=== PATIENT | female | born 1965 | race Caucasian/White ===

== ENCOUNTER 2021-08-08 09:50 | Observation (INO) ==
[2021-08-08] MEDS ORDERED: MORPHINE SULFATE INJ 4 MG IVP ONE (10:29)
[2021-08-08] MEDS ORDERED: NS 1000 ML 1,000 ML IV ONE (10:29)
[2021-08-08] MEDS ORDERED: ZOFRAN INJ 4 MG VIAL IVP ONE (10:29)
--- NOTE | 2021-08-08 10:34 | ED.ABDFE ---
HPI Time Seen Time Seen by Provider: 08/08/21 10:29 PCP Primary Care Physician: HPI Comment HPI Comment: abd pain w diarrhea x 3 days. lower and left > right. hx of diverticulitis and c diff. sent over from local clinic. Complaint Chief Complaint:: PT C/O ABDOMINAL PAIN & DIARRHEA ONSET X3 DAYS AGO. PT DENIES JESSICA N/V @ THIS TIME. COVID-19 Coronavirus risk:travel/contact w/high risk person: No Has patient experienced Coronavirus symptoms: No Source History Provided: Patient Mode of arrival Mode of Arrival: Ambulatory Timing Onset of Chief Complaint: 08/05/21 PMH PMH Past Medical History: Yes Past Medical History: Asthma and Hypertension Past Surgical History: Yes Surgical History: Cholecystectomy, Hysterectomy, Ortho Surgery, Tonsillectomy and Weight Loss Surgery Family History History of Family Medical Conditions: Yes Family Medical History: Coronary Artery Disease, Heart Failure and Hypertension Social History Do you use any recreational Drugs:: No Travel Risk Coronavirus risk:travel/contact w/high risk person: No Has patient experienced Coronavirus symptoms: No Infectious screening Have you traveled outside the country in the last 6 months?: No Isolation: Standard ROS Review of Systems Constitutional: See HPI Eyes: No Symptoms Reported ENTM: No Symptoms Reported Respiratoy: No Symptoms Reported Cardiovascular: No Symptoms Reported Gastrointestinal/Abdominal: No Symptoms Reported Genitourinary: No Symptoms Reported Neurological: No Symptoms Reported Musculoskeletal: No Symptoms Reported All Other Systems: Reviewed and Negative PE Vital Signs Vitals: Temperature 98.3 F Pulse Rate 71 Respiratory Rate 20 Blood Pressure [Right Arm] 121/73 Blood Pressure 124/66 O2 Sat by Pulse Oximetry 99 General General Appearance: Alert and In Distress Neck Neck Exam: Normal Inspection Respiratory Respiratory Exam: Normal Lung Sounds Bilat; negative Accessory Muscle Use Cardiovascular Cardiovascular Exam: Regular Rate and Normal Heart Sounds Abdominal Exam Abdominal Exam: Normal Inspection, Normal Bowel Sounds and Tenderness; negative Guarding and Rebound Back Back Exam: Normal Inspection and Full ROM Extremeties Extremities Exam: Normal Inspection and Full ROM Neurologic Neurological Exam: Alert and Oriented X3 Skin Skin Exam: Warm, Dry and Intact COURSE Treatment Treatment: improved w IVF and pain meds. ROR Labs Reviewed Laboratory Results Reviewed?: Yes Result Diagrams: 08/08/21 10:40 08/08/21 10:40 Laboratory: WBC 11.0 X10^3/uL (3.6-10.0) H 08/08/21 10:40 RBC 4.41 X10^6/uL (3.5-5.4) 08/08/21 10:40 Hgb 13.2 g/dL (12.0-16.0) 08/08/21 10:40 Hct 39.2 % (36.0-47.0) 08/08/21 10:40 MCV 88.9 fL (80.0-100.0) 08/08/21 10:40 MCH 29.9 pg (27.0-34.0) 08/08/21 10:40 MCHC 33.7 g/dL (33.0-35.0) 08/08/21 10:40 RDW 13.9 % (11.6-16.5) 08/08/21 10:40 Plt Count 300 X10^3/uL (150.0-450.0) 08/08/21 10:40 MPV 8.7 fL (7.4-11.0) 08/08/21 10:40 Neut % (Auto) 68.8 % (42.0-75.0) 08/08/21 10:40 Lymph % (Auto) 22.6 % (21.0-51.0) 08/08/21 10:40 [place] % (Auto) 4.9 % (0.0-13.0) 08/08/21 10:40 Eos % (Auto) 1.1 % (0.9-2.9) 08/08/21 10:40 Baso % (Auto) 2.6 % (0.2-1.0) H 08/08/21 10:40 Neut # (Auto) 7.6 x10^3/uL (2.2-4.8) H 08/08/21 10:40 Lymph # (Auto) 2.5 X10^3/uL (1.3-2.9) 08/08/21 10:40 [place] # (Auto) 0.5 x10^3/uL (0.3-0.8) 08/08/21 10:40 Eos # (Auto) 0.1 x10^3/uL (0.0-0.2) 08/08/21 10:40 Baso # (Auto) 0.3 X10^3/uL (0.0-0.1) H 08/08/21 10:40 Absolute Nucleated RBC 0.0 /100WBC 08/08/21 10:40 Sodium 140 mmol/L (136-145) 08/08/21 10:40 Corrected Sodium TNP 08/08/21 10:40 Potassium 4.3 mmol/L (3.5-5.1) 08/08/21 10:40 Chloride 104 mmol/L (98-107) 08/08/21 10:40 Carbon Dioxide 28.8 mmol/L (21-32) 08/08/21 10:40 BUN 11 mg/dL (7-18) 08/08/21 10:40 Creatinine 0.60 mg/dL (0.55-1.02) 08/08/21 10:40 Est GFR (MDRD) Af Amer > 60 (>60) 08/08/21 10:40 Est GFR (MDRD) Non-Af > 60 (>60) 08/08/21 10:40 Glucose 95 mg/dL (65-99) 08/08/21 10:40 Calcium 9.1 mg/dL (8.5-10.1) 08/08/21 10:40 Corrected Calcium TNP 08/08/21 10:40 Total Bilirubin 0.40 mg/dL (0.2-1.0) 08/08/21 10:40 AST 12 Units/L (15-37) L 08/08/21 10:40 ALT 18 Units/L (12-78) 08/08/21 10:40 Alkaline Phosphatase 103 Units/L (46-116) 08/08/21 10:40 Total Protein 7.1 g/dL (6.4-8.2) 08/08/21 10:40 Albumin 3.4 g/dL (3.4-5.0) 08/08/21 10:40 Globulin 3.7 g/dL (2.5-4.5) 08/08/21 10:40 Albumin/Globulin Ratio 0.9 Ratio (1.1-2.1) L 08/08/21 10:40 Amylase 51 Units/L (25-115) 08/08/21 10:40 Lipase 69 Units/L (73-393) L 08/08/21 10:40 Specimen Type Clean catch urine 08/08/21 11:45 Urine Color Yellow (YELLOW) 08/08/21 11:45 Urine Appearance Clear (CLEAR) 08/08/21 11:45 Urine pH 6.0 (5.0 - 8.0) 08/08/21 11:45 Ur Specific [place] 1.010 (1.000-1.030) 08/08/21 11:45 Urine Protein Negative (NEGATIVE) 08/08/21 11:45 Urine Glucose (UA) Negative (NEGATIVE) 08/08/21 11:45 Urine Ketones Negative (NEGATIVE) 08/08/21 11:45 Urine Occult Blood 2+ (NEGATIVE) 08/08/21 11:45 Urine Nitrite Negative (NEGATIVE) 08/08/21 11:45 Urine Bilirubin Negative (NEGATIVE) 08/08/21 11:45 Urine Urobilinogen Normal (NORMAL) 08/08/21 11:45 Ur Leukocyte Esterase Negative (NEGATIVE) 08/08/21 11:45 Urine RBC 3-5 /HPF (0-3) A 08/08/21 11:45 Urine WBC 0-2 /HPF (0-5) 08/08/21 11:45 Ur Squamous Epith Cells Rare /HPF (NEGATIVE) 08/08/21 11:45 Amorphous Sediment Trace /HPF (NEGATIVE) 08/08/21 11:45 Urine Bacteria Trace /HPF (NEGATIVE) 08/08/21 11:45 Ur Culture Indicated? No/not indicated 08/08/21 11:45 XRAY X-ray Results: CT shows sigmoid diverticulitis Opioid Opioid Risk Tool Age (Jay box if 16-45): No History of Preadolescent Sexual Abuse: No Total: 0 Total Score Risk Category: Low Risk Copyright: Abner MODI predicting aberrant behaviors Diagnosis Discharge Problem: Diverticulitis of sigmoid colon ADDITIONAL NOTES Additional Notes Additional Notes: admit to dr wan
[2021-08-08] MEDS ORDERED: NS 1000 ML 1,000 ML ONE (10:35)
[2021-08-08] MEDS ORDERED: ZOFRAN INJ 4 MG VIAL ONE (10:35)
[2021-08-08] MEDS ORDERED: MORPHINE SULFATE INJ 4 MG ONE (10:35)
[2021-08-08 11:15] LABS: BASOPHILS # (AUTO) 0.3 X10^3/uL (0.0-0.1); BASOPHILS % (AUTO) 2.6 % (0.2-1.0); EOSINOPHILS # (AUTO) 0.1 x10^3/uL (0.0-0.2); EOSINOPHILS % (AUTO) 1.1 % (0.9-2.9); HEMATOCRIT 39.2 % (36.0-47.0); HEMOGLOBIN 13.2 g/dL (12.0-16.0); LYMPHOCYTES # (AUTO) 2.5 X10^3/uL (1.3-2.9); LYMPHOCYTES % (AUTO) 22.6 % (21.0-51.0); MEAN CORPUSCULAR HEMOGLOBIN 29.9 pg (27.0-34.0); MEAN CORPUSCULAR HGB CONC 33.7 g/dL (33.0-35.0); MEAN CORPUSCULAR VOLUME 88.9 fL (80.0-100.0); MEAN PLATELET VOLUME 8.7 fL (7.4-11.0); MONOCYTES # (AUTO) 0.5 x10^3/uL (0.3-0.8); MONOCYTES % (AUTO) 4.9 % (0.0-13.0); NEUTROPHILS # (AUTO) 7.6 x10^3/uL (2.2-4.8); NEUTROPHILS % (AUTO) 68.8 % (42.0-75.0); PLATELET COUNT 300 X10^3/uL (150.0-450.0); RED BLOOD COUNT 4.41 X10^6/uL (3.5-5.4); RED CELL DISTRIBUTION WIDTH 13.9 % (11.6-16.5)
[2021-08-08 11:28] LABS: ALANINE AMINOTRANSFERASE 18 Units/L (12-78); ALBUMIN 3.4 g/dL (3.4-5.0); ALKALINE PHOSPHATASE 103 Units/L (46-116); AMYLASE 51 Units/L (25-115); ASPARTATE AMINO TRANSFERASE 12 Units/L (15-37); BLOOD UREA NITROGEN 11 mg/dL (7-18); CALCIUM 9.1 mg/dL (8.5-10.1); CARBON DIOXIDE 28.8 mmol/L (21-32); CHLORIDE 104 mmol/L (98-107); LIPASE 69 Units/L (73-393); SODIUM 140 mmol/L (136-145); TOTAL PROTEIN 7.1 g/dL (6.4-8.2); eGFR NON BLACK RACES > 60 (>60)
[2021-08-08 12:13] LABS: BILIRUBIN,URINE NEGATIVE (NEGATIVE); BLOOD/HEMOGLOBIN,URINE 2+ (NEGATIVE); GLUCOSE, URINE NEGATIVE (NEGATIVE); KETONES,URINE NEGATIVE (NEGATIVE); LEUKOCYTE ESTERASE ,URINE NEGATIVE (NEGATIVE); NITRITES,URINE NEGATIVE (NEGATIVE); PROTEIN,URINE NEGATIVE (NEGATIVE); UROBILINOGEN,URINE NORMAL (NORMAL)
[2021-08-08 12:17] LABS: APPEARANCE,URINE CLEAR (CLEAR); COLOR,URINE YELLOW (YELLOW)
[2021-08-08 12:21] LABS: AMORPHOUS SEDIMENT,UR TRACE /HPF (NEGATIVE); BACTERIA,URINE TRACE /HPF (NEGATIVE); SQUAMOUS EPITHELIAL CELL,UR RARE /HPF (NEGATIVE)
--- NOTE | 2021-08-08 13:52 | CT ---
HISTORYLOWER ABD PAIN ; PT DRANK ORAL CONTRAST, ALLERGY TO IODINESTUDYABDOMEN/PELVIS W/O CONCOMPARISONNone.TECHNIQUEMultiple axial images of the abdomen and pelvis were obtained from the lung bases to the pubic symphysis without the administration of IV contrast. Dose reduction techniques including Automated Exposure Control (AEC) and adjustment of mA and kV were utilized.FINDINGSLack of contrast limits evaluation.Lung bases demonstrate mild scattered subsegmental atelectasis. Partially visualized breast implants. The heart is normal in size. Gastric banding device is present. Status post cholecystectomy. The liver, spleen, pancreas, adrenal glands, and kidneys have a benign noncontrast appearance. 1 cm right lower pole simple appearing renal cyst. Urinary bladder is mostly decompressed. Status post hysterectomy. Sigmoid diverticulosis with wall thickening and pericolic stranding image 75 series 3. No free air or abscess. The appendix appears normal. Negative for bowel obstruction. Mildly atherosclerotic normal caliber abdominal aorta. No pathologic adenopathy. Severe degenerative disc disease at L4-5.IMPRESSIONAcute uncomplicated sigmoid diverticulitis. Recommend colonoscopy after appropriate treatment to exclude underlying lesion.Electronically signed by: Jacinto Foster (Aug 08, 2021 13:50:05)
[2021-08-08] MEDS ORDERED: ZOSYN VIAL 3.375 GRAMS 3.375 G in NS 100 ML IV + SPIKE MINIBAG* 100 ML IV ONE (14:50)
[2021-08-08] MEDS ORDERED: ZOSYN VIAL 3.375 GRAMS IV ONE (15:01)
[2021-08-08] MEDS ORDERED: NS 100 ML IV + SPIKE MINIBAG* 100 ML IV ONE (15:01)
[2021-08-08] MEDS ORDERED: VALIUM PO PRN (15:49)
[2021-08-08] MEDS ORDERED: VALIUM ONE (16:12)
[2021-08-08 17:43] VITALS: BMI 30.7
[2021-08-08] MEDS: ZOSYN VIAL 3.375 GRAMS 3.375 G in NS 100 ML IV + SPIKE MINIBAG* 100 ML IV SCH ×2 (18:15→21:06)
[2021-08-08] MEDS: NS 1000 ML 1,000 ML IV SCH (18:15)
[2021-08-08] MEDS: FLAGYL IV PREMIX 500 MG BAG 500 MG/100 ML BAG IV SCH (20:40)
[2021-08-08] MEDS: VISTARIL PO PRN (20:43)
[2021-08-09] MEDS: FLAGYL IV PREMIX 500 MG BAG 500 MG/100 ML BAG IV SCH ×4 (02:11→20:00)
--- NOTE | 2021-08-09 03:07 | ED.ABDFE ---
HPI Time Seen Time Seen by Provider: 08/08/21 10:29 PCP Primary Care Physician: Rayshawn Complaint Chief Complaint:: PT C/O ABDOMINAL PAIN & DIARRHEA ONSET X3 DAYS AGO. PT DENIES JESSICA N/V @ THIS TIME. COVID-19 Coronavirus risk:travel/contact w/high risk person: No Has patient experienced Coronavirus symptoms: No Source History Provided: Patient Mode of arrival Mode of Arrival: Ambulatory Timing Onset of Chief Complaint: 08/05/21 PMH PMH Past Medical History: Yes Past Medical History: Asthma and Hypertension Past Surgical History: Yes Surgical History: Cholecystectomy and Hysterectomy Family History History of Family Medical Conditions: Yes Family Medical History: Coronary Artery Disease and Hypertension Social History Does patient currently use any type of tobacco product: No Have you used tobacco products in the last 12 months: No Type of Tobacco Use: None Does any household member use tobacco: No Alcohol Use: None Do you use any recreational Drugs:: No Lives With: Spouse Lives Where: Home Travel Risk Coronavirus risk:travel/contact w/high risk person: No Has patient experienced Coronavirus symptoms: No Infectious screening Have you traveled outside the country in the last 6 months?: No Isolation: Standard ROS Review of Systems Constitutional: No Symptoms Reported Eyes: No Symptoms Reported ENTM: No Symptoms Reported Respiratoy: No Symptoms Reported Cardiovascular: No Symptoms Reported Gastrointestinal/Abdominal: See HPI Neurological: No Symptoms Reported Musculoskeletal: No Symptoms Reported PE Vital Signs Vitals: Temperature 98.3 F Pulse Rate [Right Radial] 72 Pulse Rate 71 Respiratory Rate 20 Blood Pressure [Right Arm] 167/73 Blood Pressure 124/66 O2 Sat by Pulse Oximetry 99 General General Appearance: Alert and In No Apparent Distress Head Head Exam: Normal Inspection ENT ENT Exam: Normal Exam Neck Neck Exam: Normal Inspection Respiratory Respiratory Exam: Normal Lung Sounds Bilat; negative Accessory Muscle Use Cardiovascular Cardiovascular Exam: Regular Rate and Normal Heart Sounds Abdominal Exam Abdominal Exam: Normal Inspection, Normal Bowel Sounds and Soft; negative Tenderness Back Back Exam: Normal Inspection and Full ROM ROR Labs Reviewed Laboratory Results Reviewed?: Yes Result Diagrams: 08/08/21 10:40 08/08/21 10:40 Laboratory: WBC 11.0 X10^3/uL (3.6-10.0) H 08/08/21 10:40 RBC 4.41 X10^6/uL (3.5-5.4) 08/08/21 10:40 Hgb 13.2 g/dL (12.0-16.0) 08/08/21 10:40 Hct 39.2 % (36.0-47.0) 08/08/21 10:40 MCV 88.9 fL (80.0-100.0) 08/08/21 10:40 MCH 29.9 pg (27.0-34.0) 08/08/21 10:40 MCHC 33.7 g/dL (33.0-35.0) 08/08/21 10:40 RDW 13.9 % (11.6-16.5) 08/08/21 10:40 Plt Count 300 X10^3/uL (150.0-450.0) 08/08/21 10:40 MPV 8.7 fL (7.4-11.0) 08/08/21 10:40 Neut % (Auto) 68.8 % (42.0-75.0) 08/08/21 10:40 Lymph % (Auto) 22.6 % (21.0-51.0) 08/08/21 10:40 [place] % (Auto) 4.9 % (0.0-13.0) 08/08/21 10:40 Eos % (Auto) 1.1 % (0.9-2.9) 08/08/21 10:40 Baso % (Auto) 2.6 % (0.2-1.0) H 08/08/21 10:40 Neut # (Auto) 7.6 x10^3/uL (2.2-4.8) H 08/08/21 10:40 Lymph # (Auto) 2.5 X10^3/uL (1.3-2.9) 08/08/21 10:40 [place] # (Auto) 0.5 x10^3/uL (0.3-0.8) 08/08/21 10:40 Eos # (Auto) 0.1 x10^3/uL (0.0-0.2) 08/08/21 10:40 Baso # (Auto) 0.3 X10^3/uL (0.0-0.1) H 08/08/21 10:40 Absolute Nucleated RBC 0.0 /100WBC 08/08/21 10:40 Sodium 140 mmol/L (136-145) 08/08/21 10:40 Corrected Sodium TNP 08/08/21 10:40 Potassium 4.3 mmol/L (3.5-5.1) 08/08/21 10:40 Chloride 104 mmol/L (98-107) 08/08/21 10:40 Carbon Dioxide 28.8 mmol/L (21-32) 08/08/21 10:40 BUN 11 mg/dL (7-18) 08/08/21 10:40 Creatinine 0.60 mg/dL (0.55-1.02) 08/08/21 10:40 Est GFR (MDRD) Af Amer > 60 (>60) 08/08/21 10:40 Est GFR (MDRD) Non-Af > 60 (>60) 08/08/21 10:40 Glucose 95 mg/dL (65-99) 08/08/21 10:40 Calcium 9.1 mg/dL (8.5-10.1) 08/08/21 10:40 Corrected Calcium TNP 08/08/21 10:40 Total Bilirubin 0.40 mg/dL (0.2-1.0) 08/08/21 10:40 AST 12 Units/L (15-37) L 08/08/21 10:40 ALT 18 Units/L (12-78) 08/08/21 10:40 Alkaline Phosphatase 103 Units/L (46-116) 08/08/21 10:40 Total Protein 7.1 g/dL (6.4-8.2) 08/08/21 10:40 Albumin 3.4 g/dL (3.4-5.0) 08/08/21 10:40 Globulin 3.7 g/dL (2.5-4.5) 08/08/21 10:40 Albumin/Globulin Ratio 0.9 Ratio (1.1-2.1) L 08/08/21 10:40 Amylase 51 Units/L (25-115) 08/08/21 10:40 Lipase 69 Units/L (73-393) L 08/08/21 10:40 Specimen Type Clean catch urine 08/08/21 11:45 Urine Color Yellow (YELLOW) 08/08/21 11:45 Urine Appearance Clear (CLEAR) 08/08/21 11:45 Urine pH 6.0 (5.0 - 8.0) 08/08/21 11:45 Ur Specific [place] 1.010 (1.000-1.030) 08/08/21 11:45 Urine Protein Negative (NEGATIVE) 08/08/21 11:45 Urine Glucose (UA) Negative (NEGATIVE) 08/08/21 11:45 Urine Ketones Negative (NEGATIVE) 08/08/21 11:45 Urine Occult Blood 2+ (NEGATIVE) 08/08/21 11:45 Urine Nitrite Negative (NEGATIVE) 08/08/21 11:45 Urine Bilirubin Negative (NEGATIVE) 08/08/21 11:45 Urine Urobilinogen Normal (NORMAL) 08/08/21 11:45 Ur Leukocyte Esterase Negative (NEGATIVE) 08/08/21 11:45 Urine RBC 3-5 /HPF (0-3) A 08/08/21 11:45 Urine WBC 0-2 /HPF (0-5) 08/08/21 11:45 Ur Squamous Epith Cells Rare /HPF (NEGATIVE) 08/08/21 11:45 Amorphous Sediment Trace /HPF (NEGATIVE) 08/08/21 11:45 Urine Bacteria Trace /HPF (NEGATIVE) 08/08/21 11:45 Ur Culture Indicated? No/not indicated 08/08/21 11:45 SARS CoV-2 RNA Rapid ANA Negative (NEGATIVE) 08/08/21 15:40 Opioid Opioid Risk Tool Age (Jay box if 16-45): No History of Preadolescent Sexual Abuse: No Total: 0 Total Score Risk Category: Low Risk Copyright: Abner MODI predicting aberrant behaviors Diagnosis Discharge Problem: Diverticulitis of sigmoid colon ADDITIONAL NOTES Additional Notes Additional Notes: admit inpt
[2021-08-09 05:12] LABS: BASOPHILS # (AUTO) 0.1 X10^3/uL (0.0-0.1); BASOPHILS % (AUTO) 0.8 % (0.2-1.0); EOSINOPHILS # (AUTO) 0.1 x10^3/uL (0.0-0.2); HEMATOCRIT 35.1 % (36.0-47.0); HEMOGLOBIN 12.1 g/dL (12.0-16.0); LYMPHOCYTES # (AUTO) 2.6 X10^3/uL (1.3-2.9); LYMPHOCYTES % (AUTO) 42.1 % (21.0-51.0); MEAN CORPUSCULAR HEMOGLOBIN 30.6 pg (27.0-34.0); MEAN CORPUSCULAR HGB CONC 34.4 g/dL (33.0-35.0); MEAN CORPUSCULAR VOLUME 89.1 fL (80.0-100.0); MEAN PLATELET VOLUME 8.5 fL (7.4-11.0); MONOCYTES # (AUTO) 0.5 x10^3/uL (0.3-0.8); MONOCYTES % (AUTO) 8.2 % (0.0-13.0); NEUTROPHILS # (AUTO) 2.9 x10^3/uL (2.2-4.8); NEUTROPHILS % (AUTO) 46.9 % (42.0-75.0); PLATELET COUNT 262 X10^3/uL (150.0-450.0); RED BLOOD COUNT 3.94 X10^6/uL (3.5-5.4); RED CELL DISTRIBUTION WIDTH 13.5 % (11.6-16.5); WHITE BLOOD COUNT 6.3 X10^3/uL (3.6-10.0)
[2021-08-09] MEDS: ZOSYN VIAL 3.375 GRAMS 3.375 G in NS 100 ML IV + SPIKE MINIBAG* 100 ML IV SCH ×3 (05:14→21:09)
[2021-08-09 05:34] LABS: ALANINE AMINOTRANSFERASE 46 Units/L (12-78); ALBUMIN 2.8 g/dL (3.4-5.0); ALKALINE PHOSPHATASE 119 Units/L (46-116); ASPARTATE AMINO TRANSFERASE 36 Units/L (15-37); BLOOD UREA NITROGEN 7 mg/dL (7-18); CALCIUM 8.7 mg/dL (8.5-10.1); CARBON DIOXIDE 28.9 mmol/L (21-32); CHLORIDE 105 mmol/L (98-107); COR CA(FOR HYPOALB) 9.7 mg/dL (8.5-10.1); CREATININE 0.65 mg/dL (0.55-1.02); SODIUM 140 mmol/L (136-145); TOTAL PROTEIN 6.1 g/dL (6.4-8.2); eGFR NON BLACK RACES > 60 (>60)
[2021-08-09] MEDS: NS 1000 ML 1,000 ML IV SCH ×2 (06:10→20:23)
[2021-08-09] MEDS ORDERED: TYLENOL 325 MG TAB PO PRN (08:15)
--- NOTE | 2021-08-09 11:39 | DR.H&P ---
H&P - History & Physical for Day of: H&P Date: 08/08/21 - Chief Complaint Chief Complaint: ABDOMINAL PAIN, DIARRHEA - History of Present Illness History of Present Illness: IS A 56 YEAR OLD WHITE FEMALE. SHE IS A PATIENT OF OUR[facility]. SHE PRESENTED TO THE ER WITH COMPLAINTS OF LEFT LOWER QUADRANT ABDOMINAL PAIN AND DIARRHEA. SYMPTOMS STARTED APPROXIMATELY THREE DAYS PRIOR TO ARRIVAL. SHE DOES ADMIT TO RLQ PAIN WELL, BUT IT IS NOT SEVERE THE LEFT SIDE. PAIN IS DESCRIBED SHARP, CONSTANT, AND IS RATED A 6/10. HER PMH INCLUDES ASTHMA, HTN, CHOLECYSTECTOMY, HYSTERECTOMY, TONSILLECTOMY, ORTHO SURGERY, AND WEIGHT LOSS SURGERY. ON ARRIVAL TO THE ER, VITALS WERE 98.3-79-18-98%-143/73. LABS WERE OBTAINED. ABNORMAL LAB VALUES INCLUDE THE FOLLOWING: WBC 11.0, AST 12, LIPASE 69. URINALYSIS REVEALED: WBC 0-2, RBC 3-5, OCCULT BLOOD 2+, BACTERIA TRACE. COVID-19 NEGATIVE. AN ABDOMEN/PELVIS CT WITHOUT CONTRAST WAS OBTAINED AND REVEALED: Lack of contrast limits evaluation. Lung bases demonstrate mild scattered subsegmental atelectasis. Partially visualized breast implants. The heart is normal in size. Gastric banding device is present. Status post cholecystectomy. The liver, spleen, pancreas, adrenal glands, and kidneys have a benign noncontrast appearance. 1 cm right lower pole simple appearing renal cyst. Urinary bladder is mostly decompressed. Status post hysterectomy. Sigmoid diverticulosis with wall thickening and pericolic stranding image 75 series 3. No free air or abscess. The appendix appears normal. Negative for bowel obstruction. Mildly atherosclerotic normal caliber abdominal aorta. No pathologic adenopathy. Severedegenerative disc disease at L4-5. IN THE ER, SHE WAS GIVEN A NORMAL SALINE BOLUS, MORPHINE 4MG IV X 1, ZOFRAN 4MG IV X 1, ZOSYN 3.375G IV X 1. SHE WAS ADMITTED TO THE HOSPITAL FOR FURTHER EVALUATION AND TREATMENT OF ACUTE DIVERTICULITIS. SHE WAS STARTED ON NORMAL SALINE AT 80 ML/HR, FLAGYL 500MG IV Q6H, ZOSYN 3.375G IV TID, TRAMADOL 50MG PO Q6H PRN, VALIUM 5MG PO Q8H PRN, AND TYLENOL 650MG PO Q6H PRN. OTHERWISE, WE PLAN TO FOLLOW UP WITH AM LABS AND CONTINUE TO MONITOR. TIME SPENT ON CLINICAL ASSESSMENT, REVIEWING LABS AND IMAGING, DECISION MAKING, AND DOCUMENTATION GREATER THAN 75 MINUTES. - Past Medical History Past Medical History: Hypertension, Asthma - Past Surgical History Surgical History: Cholecystectomy, Hysterectomy - Family History Family Medical History: Coronary Artery Disease, Hypertension - Social History Does patient currently use any type of tobacco product: No Have you used tobacco products in the last 12 months: No Type of Tobacco Use: None Does any household member use tobacco: No Alcohol Use: None Drug Use: None - Medications Home Medications: ciprofloxacin [From Cipro] Allergy (Verified 08/08/21 14:38) hydrocodone Allergy (Verified 08/08/21 14:38) Iodine and Iodide Containing Produc Allergy (Verified 08/08/21 14:38) CONTINUE taking the following medications atorvastatin 20 mg PO DAILY 08/09/21 [History] - Review of Systems Constitutional: See HPI Eyes: No Symptoms Reported ENT: No Symptoms Reported Respiratory: No Symptoms Reported Cardiovascular: No Symptoms Reported Gastrointestinal: See HPI, Abdominal Pain, Diarrhea Genitourinary: No Symptoms Reported Musculoskeletal: No Symptoms Reported Skin: No Symptoms Reported Neurological: No Symptoms Reported - Physical Exam Vital Signs: Temperature 97.8 F Pulse Rate [Right Radial] 61 Pulse Rate 71 Respiratory Rate 20 Blood Pressure [Left Arm] 126/59 Blood Pressure [Right Arm] 111/57 Blood Pressure 124/66 O2 Sat by Pulse Oximetry 99 Oriented: Normal Eyes: Normal Ear: Normal Nose: Normal Throat: Normal Respiratory: Diminished Throughout Cardiovascular: Normal : Normal Auscultation: Bowel Sounds: Normal Palpation: Normal Tenderness: Normal, RLQ, LLQ, Moderate Skin: Normal Musculoskeletal: Normal Psychiatric: Normal Mood Description: Calm Affect: Normal Speech Pattern: Clear - Assessment/Plan (1) Diverticulitis of sigmoid colon Status: Acute Plan: ADMIT, NORMAL SALINE AT 80 ML/HR, FLAGYL 500MG IV Q6H, ZOSYN 3.375G IV TID, TRAMADOL 50MG PO Q6H PRN, VALIUM 5MG PO Q8H PRN, AND TYLENOL 650MG PO Q6H PRN. - Allergies Allergies/Adverse Reactions: Allergies Allergy/AdvReac Type Severity Reaction Status Date / Time ciprofloxacin [From Cipro] Allergy Verified 08/08/21 14:38 hydrocodone Allergy Verified 08/08/21 14:38 Iodine and Iodide Containing Allergy Verified 08/08/21 14:38 Produc
[2021-08-09] MEDS: ULTRAM PO PRN ×2 (11:40→20:00)
[2021-08-09] MEDS: VISTARIL PO PRN (20:00)
[2021-08-10] MEDS: FLAGYL IV PREMIX 500 MG BAG 500 MG/100 ML BAG IV SCH ×2 (02:16→08:55)
[2021-08-10] MEDS: ZOSYN VIAL 3.375 GRAMS 3.375 G in NS 100 ML IV + SPIKE MINIBAG* 100 ML IV SCH (05:05)
[2021-08-10 06:43] LABS: ALANINE AMINOTRANSFERASE 38 Units/L (12-78); ALKALINE PHOSPHATASE 112 Units/L (46-116); ASPARTATE AMINO TRANSFERASE 23 Units/L (15-37); BASOPHILS # (AUTO) 0.1 X10^3/uL (0.0-0.1); BASOPHILS % (AUTO) 0.8 % (0.2-1.0); BLOOD UREA NITROGEN 9 mg/dL (7-18); CARBON DIOXIDE 31.6 mmol/L (21-32); CHLORIDE 106 mmol/L (98-107); COR CA(FOR HYPOALB) 9.8 mg/dL (8.5-10.1); CREATININE 0.75 mg/dL (0.55-1.02); EOSINOPHILS # (AUTO) 0.2 x10^3/uL (0.0-0.2); EOSINOPHILS % (AUTO) 2.8 % (0.9-2.9); HEMATOCRIT 37.7 % (36.0-47.0); HEMOGLOBIN 12.7 g/dL (12.0-16.0); LYMPHOCYTES # (AUTO) 2.3 X10^3/uL (1.3-2.9); LYMPHOCYTES % (AUTO) 37.6 % (21.0-51.0); MEAN CORPUSCULAR HEMOGLOBIN 30.5 pg (27.0-34.0); MEAN CORPUSCULAR HGB CONC 33.6 g/dL (33.0-35.0); MEAN CORPUSCULAR VOLUME 90.7 fL (80.0-100.0); MEAN PLATELET VOLUME 7.9 fL (7.4-11.0); MONOCYTES # (AUTO) 0.6 x10^3/uL (0.3-0.8); MONOCYTES % (AUTO) 9.2 % (0.0-13.0); NEUTROPHILS % (AUTO) 49.6 % (42.0-75.0); PLATELET COUNT 282 X10^3/uL (150.0-450.0); RED BLOOD COUNT 4.16 X10^6/uL (3.5-5.4); RED CELL DISTRIBUTION WIDTH 13.5 % (11.6-16.5); SODIUM 142 mmol/L (136-145); TOTAL PROTEIN 6.5 g/dL (6.4-8.2); WHITE BLOOD COUNT 6.1 X10^3/uL (3.6-10.0); eGFR NON BLACK RACES > 60 (>60)
[2021-08-10 08:54] VITALS: BP 127/67
== END 2021-08-10 11:35 | disposition home or self-care (01) ==
LOC: ER 09:55 → MED/SURG 09:55
PROVIDERS: ADMIT Internal Medicine; ATTEND Internal Medicine
DX: R10.32 Left lower quadrant pain; R19.7 Diarrhea, unspecified; K57.32 Diverticulitis of large intestine without perforation or abscess without bleeding; Z20.822 Contact with and (suspected) exposure to COVID-19; I10 Essential (primary) hypertension

== ENCOUNTER 2021-08-31 14:24 | Observation (INO) ==
[2021-08-31] MEDS ORDERED: ZOFRAN INJ 4 MG VIAL IVP PRN (18:43)
[2021-08-31] MEDS ORDERED: DEMEROL INJ IVP PRN (18:43)
[2021-08-31] MEDS ORDERED: NS 1,000 ML IV 1,000 ML ONE (18:56)
[2021-08-31] MEDS ORDERED: FLAGYL IV PREMIX 500 MG BAG 500 MG/100 ML BAG IV ONE (18:57)
[2021-08-31 19:09] LABS: BASOPHILS # (AUTO) 0.1 X10^3/uL (0.0-0.1); BASOPHILS % (AUTO) 0.6 % (0.2-1.0); EOSINOPHILS # (AUTO) 0.1 x10^3/uL (0.0-0.2); EOSINOPHILS % (AUTO) 0.9 % (0.9-2.9); HEMOGLOBIN 13.5 g/dL (12.0-16.0); LYMPHOCYTES # (AUTO) 3.5 X10^3/uL (1.3-2.9); LYMPHOCYTES % (AUTO) 29.3 % (21.0-51.0); MEAN CORPUSCULAR HGB CONC 33.7 g/dL (33.0-35.0); MEAN PLATELET VOLUME 7.9 fL (7.4-11.0); MONOCYTES # (AUTO) 0.8 x10^3/uL (0.3-0.8); MONOCYTES % (AUTO) 7.1 % (0.0-13.0); NEUTROPHILS # (AUTO) 7.3 x10^3/uL (2.2-4.8); NEUTROPHILS % (AUTO) 62.1 % (42.0-75.0); PLATELET COUNT 277 X10^3/uL (150.0-450.0); RED CELL DISTRIBUTION WIDTH 13.5 % (11.6-16.5); WHITE BLOOD COUNT 11.8 X10^3/uL (3.6-10.0)
[2021-08-31] MEDS: FLAGYL IV PREMIX 500 MG BAG 500 MG/100 ML BAG IV SCH ×2 (19:23→20:30)
[2021-08-31] MEDS: NS 1,000 ML IV 1,000 ML IV SCH (19:23)
[2021-08-31 19:25] LABS: ALANINE AMINOTRANSFERASE 23 Units/L (12-78); ALBUMIN 3.8 g/dL (3.4-5.0); ALKALINE PHOSPHATASE 108 Units/L (46-116); AMYLASE 77 Units/L (25-115); ASPARTATE AMINO TRANSFERASE 15 Units/L (15-37); BLOOD UREA NITROGEN 13 mg/dL (7-18); CALCIUM 9.2 mg/dL (8.5-10.1); CARBON DIOXIDE 29.7 mmol/L (21-32); CHLORIDE 104 mmol/L (98-107); CREATININE 0.63 mg/dL (0.55-1.02); LIPASE 99 Units/L (73-393); SODIUM 139 mmol/L (136-145); TOTAL PROTEIN 7.1 g/dL (6.4-8.2); eGFR NON BLACK RACES > 60 (>60)
[2021-08-31] MEDS ORDERED: NS 500 ML IV 500 ML IV PRN (19:44)
[2021-08-31] MEDS ORDERED: NS 100 ML IV + SPIKE MINIBAG* 100 ML IV ONE (20:03)
[2021-08-31] MEDS ORDERED: ZOSYN VIAL 3.375 GRAMS IV ONE (20:03)
[2021-08-31 21:00] VITALS: BMI 31.6
[2021-08-31] MEDS: ZOSYN VIAL 3.375 GRAMS 3.375 G in NS 100 ML IV + SPIKE MINIBAG* 100 ML IV SCH (21:07)
[2021-08-31 22:05] LABS: BILIRUBIN,URINE NEGATIVE (NEGATIVE); BLOOD/HEMOGLOBIN,URINE 2+ (NEGATIVE); GLUCOSE, URINE NEGATIVE (NEGATIVE); KETONES,URINE NEGATIVE (NEGATIVE); LEUKOCYTE ESTERASE ,URINE NEGATIVE (NEGATIVE); NITRITES,URINE NEGATIVE (NEGATIVE); PROTEIN,URINE NEGATIVE (NEGATIVE); UROBILINOGEN,URINE NORMAL (NORMAL)
[2021-08-31 22:26] LABS: APPEARANCE,URINE CLEAR (CLEAR); COLOR,URINE YELLOW (YELLOW)
[2021-08-31 22:27] LABS: BACTERIA,URINE TRACE /HPF (NEGATIVE); SQUAMOUS EPITHELIAL CELL,UR FEW /HPF (NEGATIVE)
[2021-09-01] MEDS: NS 1,000 ML IV 1,000 ML IV SCH ×4 (02:21→21:08)
[2021-09-01] MEDS: FLAGYL IV PREMIX 500 MG BAG 500 MG/100 ML BAG IV SCH ×4 (02:21→21:07)
[2021-09-01] MEDS: ZOSYN VIAL 3.375 GRAMS 3.375 G in NS 100 ML IV + SPIKE MINIBAG* 100 ML IV SCH ×3 (05:15→21:08)
[2021-09-01 05:51] LABS: BASOPHILS % (AUTO) 0.5 % (0.2-1.0); EOSINOPHILS # (AUTO) 0.1 x10^3/uL (0.0-0.2); EOSINOPHILS % (AUTO) 1.4 % (0.9-2.9); HEMATOCRIT 35.8 % (36.0-47.0); HEMOGLOBIN 12.3 g/dL (12.0-16.0); LYMPHOCYTES # (AUTO) 2.2 X10^3/uL (1.3-2.9); LYMPHOCYTES % (AUTO) 22.8 % (21.0-51.0); MEAN CORPUSCULAR HEMOGLOBIN 30.3 pg (27.0-34.0); MEAN CORPUSCULAR HGB CONC 34.3 g/dL (33.0-35.0); MEAN CORPUSCULAR VOLUME 88.5 fL (80.0-100.0); MEAN PLATELET VOLUME 8.2 fL (7.4-11.0); MONOCYTES # (AUTO) 0.9 x10^3/uL (0.3-0.8); MONOCYTES % (AUTO) 9.9 % (0.0-13.0); NEUTROPHILS # (AUTO) 6.2 x10^3/uL (2.2-4.8); NEUTROPHILS % (AUTO) 65.4 % (42.0-75.0); PLATELET COUNT 264 X10^3/uL (150.0-450.0); RED BLOOD COUNT 4.05 X10^6/uL (3.5-5.4); RED CELL DISTRIBUTION WIDTH 13.7 % (11.6-16.5); WHITE BLOOD COUNT 9.5 X10^3/uL (3.6-10.0)
[2021-09-01 05:58] LABS: ALANINE AMINOTRANSFERASE 18 Units/L (12-78); ALKALINE PHOSPHATASE 91 Units/L (46-116); ASPARTATE AMINO TRANSFERASE 12 Units/L (15-37); BLOOD UREA NITROGEN 10 mg/dL (7-18); CALCIUM 8.5 mg/dL (8.5-10.1); CARBON DIOXIDE 26.4 mmol/L (21-32); CHLORIDE 106 mmol/L (98-107); COR CA(FOR HYPOALB) 9.3 mg/dL (8.5-10.1); CREATININE 0.61 mg/dL (0.55-1.02); SODIUM 140 mmol/L (136-145); eGFR NON BLACK RACES > 60 (>60)
--- NOTE | 2021-09-01 12:53 | DR.H&P ---
H&P - History & Physical for Day of: H&P Date: 08/31/21 - Chief Complaint Chief Complaint: ABDOMINAL PAIN, FEVER - History of Present Illness History of Present Illness: IS A 56 YEAR OLD WHITE FEMALE. SHE IS A PATIENT OF [facility]. SHE PRESENTED TO THE HOSPITAL A DIRECT ADMISSION DUE TO COMPLAINTS OF DIFFUSE ABDOMINAL PAIN (WORSE IN THE LLQ), CONSTIPATION, AND FEVER. PATIENT REPORTS HTAT DIARRHEA STARTED ON 08/31/21. PATIENT WAS HOS PITALIZED LESS THAN A MONTH AGO FOR TREATMENT OF ACUTE DIVERTICULITIS. SHE WAS ALSO DIAGNOSED WITH C.DIFF COLITIS ABOUT TWO MONTHS AGO. PAIN IS DESCRIBED SHARP, CONSTANT, AND IS RATED A 6/10. HER PMH INCLUDES ASTHMA, HTN, DIVERTICULITIS, CHOLECYSTECTOMY, HYSTERECTOMY, TONSILLECTOMY, ORTHO SURGERY, AND WEIGHT LOSS SURGERY. ON ARRIVAL TO THE HOSPITAL, VITALS WERE 98.1-76-18-99%-139/67. LABS WERE OBTAINED. ABNORMAL LAB VALUES INCLUDE THE FOLLOWING: WBC 11.8, GLUCOSE 110. OTHERWISE, SHE IS HEMODYNAMICALLY STABLE. URINALYSIS REVEALED: WBC 3-5, RBC 5-10, BACTERIA TRACE, LEUKOCYTES NEGATIVE. COVID-19, RSV, INFLUENZA NEGATIVE. SHE WAS STARTED ON NORMAL SALINE AT 125 ML/HR, FLAGYL 500MG IV Q6H, ZOSYN 3.375G IV TID, DEMEROL 25MG IV Q6H PRN, AND ZOFRAN 4MG IV Q4H PRN. WE WILL OBTAIN AN ABDOMEN/PELVIS CT WITHOUT CONTRAST. WE WILL CONSULT WITH , GENERALIZED SURGEON. OTHERWISE, WE PLAN TO FOLLOW UP WITH AM LABS AND CONTINUE TO MONITOR. TIME SPENT ON CLINICAL ASSESSMENT, REVIEWING LABS AND IMAGING, DECISION MAKING, AND DOCUMENTATION GREATER THAN 75 MINUTES. - Past Medical History Past Medical History: Hypertension, Asthma - Past Surgical History Surgical History: Cholecystectomy, Hysterectomy, Ortho Surgery, Tonsillectomy - Family History Family Medical History: Cancer, Coronary Artery Disease, Hypertension - Social History Does patient currently use any type of tobacco product: No Have you used tobacco products in the last 12 months: No Type of Tobacco Use: None Does any household member use tobacco: No Alcohol Use: None Drug Use: None - Medications Home Medications: ciprofloxacin [From Cipro] Allergy (Verified 08/08/21 14:38) hydrocodone Allergy (Verified 08/08/21 14:38) Iodine and Iodide Containing Produc Allergy (Verified 08/08/21 14:38) - Review of Systems Constitutional: Fever Eyes: No Symptoms Reported ENT: No Symptoms Reported Respiratory: No Symptoms Reported Cardiovascular: No Symptoms Reported Gastrointestinal: See HPI, Nausea, Abdominal Pain, Constipation Genitourinary: No Symptoms Reported Musculoskeletal: No Symptoms Reported Skin: No Symptoms Reported Neurological: No Symptoms Reported - Physical Exam Vital Signs: Temperature 97.9 F Pulse Rate [Left] 70 Respiratory Rate 18 Blood Pressure [Right Arm] 130/65 Blood Pressure [Left Arm] 139/67 O2 Sat by Pulse Oximetry 98 Oriented: Normal Eyes: Normal Ear: Normal Nose: Normal Throat: Normal Respiratory: Clear Throughout Cardiovascular: Normal : Normal Auscultation: Bowel Sounds: Decreased Palpation: Normal Tenderness: Diffuse, Moderate Skin: Normal Musculoskeletal: Normal Psychiatric: Normal Mood Description: Calm Affect: Normal Speech Pattern: Clear - Assessment/Plan (1) Abdominal pain Qualifiers: Abdominal location: generalized Qualified Code(s): R10.84 - Generalized abdominal pain Status: Acute Plan: ADMIT, NORMAL SALINE AT 125 ML/HR, FLAGYL 500MG IV Q6H, ZOSYN 3.375G IV TID, DEMEROL 25MG IV Q6H PRN, AND ZOFRAN 4MG IV Q4H PRN. (2) Fever Qualifiers: Fever type: unspecified Qualified Code(s): R50.9 - Fever, unspecified Status: Acute - Allergies Allergies/Adverse Reactions: Allergies Allergy/AdvReac Type Severity Reaction Status Date / Time ciprofloxacin [From Cipro] Allergy Verified 08/08/21 14:38 hydrocodone Allergy Verified 08/08/21 14:38 Iodine and Iodide Containing Allergy Verified 08/08/21 14:38 Produc
--- NOTE | 2021-09-01 13:02 | CT ---
HISTORYABDOMINAL PAIN, FEVER, HX DIVERTICULITISSTUDYABDOMEN/PELVIS W/O CONCOMPARISONCT abdomen and pelvis 08/08/2021TECHNIQUEMultiple CT axial images of the abdomen and pelvis were obtained without IV contrast. Coronal and sagittal images were reconstructed. Dose reduction techniques included Automated Exposure Control (AEC) and adjustment of mA and kV.FINDINGSThe inflammatory changes of sigmoid diverticulitis have progressed. There is more surrounding edema. Wall thickening still present. The length of segment involved may have increased, extending proximally along the sigmoid colon.No focal fluid collection to suggest an abscess. No bowel obstruction or free air. No liver abscess are mesenteric edema.The lung bases are clear. Heart size is normal. Bilateral breast implants. Gastric band procedure.No hydronephrosis. Normal appendix.IMPRESSION1. Progressed findings of acute sigmoid diverticulitis2. No evidence for abscessElectronically signed by: Soto Parker (Sep 01, 2021 13:00:52)
[2021-09-02] MEDS: FLAGYL IV PREMIX 500 MG BAG 500 MG/100 ML BAG IV SCH ×2 (02:00→09:20)
[2021-09-02] MEDS: NS 1,000 ML IV 1,000 ML IV SCH (02:02)
[2021-09-02] MEDS: ZOSYN VIAL 3.375 GRAMS 3.375 G in NS 100 ML IV + SPIKE MINIBAG* 100 ML IV SCH (05:25)
[2021-09-02 05:31] LABS: BASOPHILS # (AUTO) 0.1 X10^3/uL (0.0-0.1); BASOPHILS % (AUTO) 0.7 % (0.2-1.0); EOSINOPHILS # (AUTO) 0.2 x10^3/uL (0.0-0.2); EOSINOPHILS % (AUTO) 2.3 % (0.9-2.9); HEMATOCRIT 34.2 % (36.0-47.0); HEMOGLOBIN 11.6 g/dL (12.0-16.0); LYMPHOCYTES # (AUTO) 2.3 X10^3/uL (1.3-2.9); LYMPHOCYTES % (AUTO) 32.9 % (21.0-51.0); MEAN CORPUSCULAR HEMOGLOBIN 30.2 pg (27.0-34.0); MEAN CORPUSCULAR VOLUME 88.8 fL (80.0-100.0); MEAN PLATELET VOLUME 7.9 fL (7.4-11.0); MONOCYTES # (AUTO) 0.7 x10^3/uL (0.3-0.8); MONOCYTES % (AUTO) 10.3 % (0.0-13.0); NEUTROPHILS # (AUTO) 3.8 x10^3/uL (2.2-4.8); NEUTROPHILS % (AUTO) 53.8 % (42.0-75.0); PLATELET COUNT 246 X10^3/uL (150.0-450.0); RED BLOOD COUNT 3.85 X10^6/uL (3.5-5.4)
[2021-09-02 05:40] LABS: ALANINE AMINOTRANSFERASE 16 Units/L (12-78); ALBUMIN 2.8 g/dL (3.4-5.0); ALKALINE PHOSPHATASE 84 Units/L (46-116); ASPARTATE AMINO TRANSFERASE 11 Units/L (15-37); BLOOD UREA NITROGEN 6 mg/dL (7-18); CALCIUM 8.3 mg/dL (8.5-10.1); CHLORIDE 108 mmol/L (98-107); COR CA(FOR HYPOALB) 9.3 mg/dL (8.5-10.1); CREATININE 0.59 mg/dL (0.55-1.02); SODIUM 144 mmol/L (136-145); TOTAL PROTEIN 5.8 g/dL (6.4-8.2); eGFR NON BLACK RACES > 60 (>60)
[2021-09-02 07:53] VITALS: BP 139/74
[2021-09-02] MEDS ORDERED: DIFLUCAN PO ONE (08:06)
--- NOTE | 2021-09-02 08:25 | DR.PROGNOT ---
Hospital Progress Notes - Progress Note for Day of: Progress Note Date: 09/02/21 - Chief Complaint Chief Complaint: less abdominal pain . no nausea or vomiting . last CT still showing acute sigmoid diverticulitis .. no abscess, no obstruction. CBC and CMP are normal .. afebrile . - Past Medical Family Social History Past Med/Fam/Surg Hx: No changes since H&P Allergies: Allergies ciprofloxacin [From Cipro] Allergy (Verified 08/08/21 14:38) hydrocodone Allergy (Verified 08/08/21 14:38) Iodine and Iodide Containing Produc Allergy (Verified 08/08/21 14:38) - Review Of Systems ROS: No change since H&P - Vital Signs Vital Signs: Temperature 97.5 F Pulse Rate [Left] 74 Respiratory Rate 20 Blood Pressure [Right Arm] 139/74 Blood Pressure [Left Arm] 139/67 O2 Sat by Pulse Oximetry 95 - Physical Exam Oriented: Normal Eyes: Normal Ear: Normal Nose: Normal Throat: Normal Respiratory: Normal Cardiovascular: Normal : Normal GI:Auscultation: Normal GI:Palpation: Normal GI: Tenderness: Diffuse, LLQ (soft, flat abdomen with diffuse tenderness , no rebound .. BS +), Moderate Skin: Normal Musculoskeletal: Normal Psychiatric: Normal Mood Description: Calm Affect: Normal Speech Pattern: Clear, Appropriate - Laboratory and Diagnostics Result Diagrams: 09/02/21 05:07 09/02/21 05:07 Labs: Laboratory WBC 7.0 X10^3/uL (3.6-10.0) 09/02/21 05:07 RBC 3.85 X10^6/uL (3.5-5.4) 09/02/21 05:07 Hgb 11.6 g/dL (12.0-16.0) L 09/02/21 05:07 Hct 34.2 % (36.0-47.0) L 09/02/21 05:07 MCV 88.8 fL (80.0-100.0) 09/02/21 05:07 MCH 30.2 pg (27.0-34.0) 09/02/21 05:07 MCHC 34.0 g/dL (33.0-35.0) 09/02/21 05:07 RDW 14.0 % (11.6-16.5) 09/02/21 05:07 Plt Count 246 X10^3/uL (150.0-450.0) 09/02/21 05:07 MPV 7.9 fL (7.4-11.0) 09/02/21 05:07 Neut % (Auto) 53.8 % (42.0-75.0) 09/02/21 05:07 Lymph % (Auto) 32.9 % (21.0-51.0) 09/02/21 05:07 [place] % (Auto) 10.3 % (0.0-13.0) 09/02/21 05:07 Eos % (Auto) 2.3 % (0.9-2.9) 09/02/21 05:07 Baso % (Auto) 0.7 % (0.2-1.0) 09/02/21 05:07 Neut # (Auto) 3.8 x10^3/uL (2.2-4.8) 09/02/21 05:07 Lymph # (Auto) 2.3 X10^3/uL (1.3-2.9) 09/02/21 05:07 [place] # (Auto) 0.7 x10^3/uL (0.3-0.8) 09/02/21 05:07 Eos # (Auto) 0.2 x10^3/uL (0.0-0.2) 09/02/21 05:07 Baso # (Auto) 0.1 X10^3/uL (0.0-0.1) 09/02/21 05:07 Absolute Nucleated RBC 0.0 /100WBC 09/02/21 05:07 Sodium 144 mmol/L (136-145) 09/02/21 05:07 Corrected Sodium TNP 09/02/21 05:07 Potassium 3.9 mmol/L (3.5-5.1) 09/02/21 05:07 Chloride 108 mmol/L (98-107) H 09/02/21 05:07 Carbon Dioxide 27.0 mmol/L (21-32) 09/02/21 05:07 BUN 6 mg/dL (7-18) L 09/02/21 05:07 Creatinine 0.59 mg/dL (0.55-1.02) 09/02/21 05:07 Est GFR (MDRD) Af Amer > 60 (>60) 09/02/21 05:07 Est GFR (MDRD) Non-Af > 60 (>60) 09/02/21 05:07 Glucose 96 mg/dL (65-99) 09/02/21 05:07 Calcium 8.3 mg/dL (8.5-10.1) L 09/02/21 05:07 Corrected Calcium 9.3 mg/dL (8.5-10.1) 09/02/21 05:07 Total Bilirubin 0.40 mg/dL (0.2-1.0) 09/02/21 05:07 AST 11 Units/L (15-37) L 09/02/21 05:07 ALT 16 Units/L (12-78) 09/02/21 05:07 Alkaline Phosphatase 84 Units/L (46-116) 09/02/21 05:07 Total Protein 5.8 g/dL (6.4-8.2) L 09/02/21 05:07 Albumin 2.8 g/dL (3.4-5.0) L 09/02/21 05:07 Globulin 3.0 g/dL (2.5-4.5) 09/02/21 05:07 Albumin/Globulin Ratio 0.9 Ratio (1.1-2.1) L 09/02/21 05:07 Amylase 77 Units/L (25-115) 08/31/21 18:59 Lipase 99 Units/L (73-393) 08/31/21 18:59 Specimen Type Clean catch urine 08/31/21 21:55 Urine Color Yellow (YELLOW) 08/31/21 21:55 Urine Appearance Clear (CLEAR) 08/31/21 21:55 Urine pH 6.0 (5.0 - 8.0) 08/31/21 21:55 Ur Specific [place] 1.020 (1.000-1.030) 08/31/21 21:55 Urine Protein Negative (NEGATIVE) 08/31/21 21:55 Urine Glucose (UA) Negative (NEGATIVE) 08/31/21 21:55 Urine Ketones Negative (NEGATIVE) 08/31/21 21:55 Urine Occult Blood 2+ (NEGATIVE) 08/31/21 21:55 Urine Nitrite Negative (NEGATIVE) 08/31/21 21:55 Urine Bilirubin Negative (NEGATIVE) 08/31/21 21:55 Urine Urobilinogen Normal (NORMAL) 08/31/21 21:55 Ur Leukocyte Esterase Negative (NEGATIVE) 08/31/21 21:55 Urine RBC 5-10 /HPF (0-3) A 08/31/21 21:55 Urine WBC 3-5 /HPF (0-5) 08/31/21 21:55 Ur Squamous Epith Cells Few /HPF (NEGATIVE) 08/31/21 21:55 Urine Bacteria Trace /HPF (NEGATIVE) 08/31/21 21:55 Ur Culture Indicated? No/not indicated 08/31/21 21:55 Stl C. diff Tox B Gene Negative (NEGATIVE) 09/01/21 15:10 Stl C. diff [id number] Presumptive negative (NEGATIVE) 09/01/21 15:10 SARS-CoV-2 (PCR) Negative (NEGATIVE) 08/31/21 17:23 Influenza Type A (PCR) Negative (NEGATIVE) 08/31/21 17:23 Influenza Type B (PCR) Negative (NEGATIVE) 08/31/21 17:23 RSV (PCR) Negative (NEGATIVE) 08/31/21 17:23 - Assessment and Plan 1: subsiding acute sigmoid diverticulitis . recurrent diverticulitis . same liquid diet for few days . oral ATB , Cipro and Flagyl for 10 days . f/u in 3 weeks and colonoscopy in 6 weeks .. - Problem Patient Problems: Patient Problems Abdominal pain (Acute) R10.9 Fever (Acute) R50.9
[2021-09-02] MEDS ORDERED: MAGIC MOUTHWASH (Orig. Formula) MT SCH (09:00)
== END 2021-09-02 10:35 | disposition home or self-care (01) ==
LOC: MED/SURG
PROVIDERS: ADMIT Internal Medicine; ATTEND Internal Medicine
DX: K59.09 Other constipation; I10 Essential (primary) hypertension; K57.32 Diverticulitis of large intestine without perforation or abscess without bleeding; R50.9 Fever, unspecified; R10.84 Generalized abdominal pain; Z20.822 Contact with and (suspected) exposure to COVID-19